=== PATIENT | male | born 1980 | race Caucasian/White ===

== ENCOUNTER 2020-02-20 01:28 | Emergency (ER) | payer OTHER ==
[~2020-02-20] VITALS: Ht 175.3 cm; Wt 77.3 kg
[2020-02-20] MEDS ORDERED: MORPHINE SULFATE 10 MG/ML VIAL. IV ONE (02:00)
[2020-02-20] MEDS ORDERED: PROPOFOL 10 MG/ML (20ML) VIAL. IV ONE (03:00)
--- NOTE | 2020-02-20 03:08 | RAD ---
INDICATION: Reason: fall / Spl. Instructions: / History: COMPARISON: None. IMPRESSION: Right wrist: 3 views obtained. Comminuted and displaced fracture is identified at the distal radius w ith extension through the epiphysis and metaphysis and likely extension to the articular surface. Roman deshaun displacement of the fracture fragments by approximately 15 mm. Additionally there is a subtle nayely ency at the ulnar styloid which could be from an additional fracture. Right forearm: 2 views obtained. Above-described comminuted distal radius fracture as well as suspect ed ulna fracture seen on this exam as well. Electronically signed by: Jonathan Cortez MD (02/20/2020 3:01 AM) [id number]
[2020-02-20 03:18] VITALS: BP 152/89
[2020-02-20] MEDS ORDERED: oxyCODONE/APAP 5/325 1 TAB TABLET PO ONE (04:00)
[2020-02-20] MEDS ORDERED: MORPHINE SULFATE 4 MG/ML VIAL. IV ONE (04:00)
[2020-02-20] MEDS ORDERED: OXYC1TAB15 PO (04:04)
--- NOTE | 2020-02-20 04:04 | ED.ADGEN ---
General Adult EDM: Chief Complaint: WRIST PAIN HPI: HPI: Patient is a 39-year-old male who presents to the emergency room complaining of severe right wrist pain. Patient slipped and fell on ice at home. He caught himself with his right arm. He denies any other injuries. He does state that he has a difficult time moving the fingers and has a difficult time feeling his thumb. Review of Systems: Review of Systems: Complete ROS is negative unless otherwise documented in HPI Current Medications: Current Medications Medications (Trade) Dose Ordered Sig/Melisa Start Time Stop Time Status Last Admin Dose Admin Morphine Sulfate (Morphine Sulfate) 4 mg 1X ONCE 02/20/20 04:00 02/20/20 04:11 DC 02/20/20 04:09 4 MG Oxycodone/ Acetaminophen (Percocet 5/325) 1 tab 1X ONCE 02/20/20 04:00 02/20/20 04:11 DC 02/20/20 04:08 1 TAB Propofol (Diprivan) 200 mg 1X ONCE 02/20/20 03:00 02/20/20 03:03 DC 02/20/20 02:18 200 MG Allergies: Allergies: Allergies Coded Allergies Type Severity Reaction Last Updated Verified ibuprofen Allergy Severe anaphylaxis 02/20/20 Yes Sulfa (Sulfonamide Antibiotics) Allergy Intermediate 02/20/20 Yes meperidine Allergy Intermediate hallucinations 02/20/20 Yes Physical Exam: PE: General: Awake, alert, NAD. Well Nourished, well hydrated. Cooperative HEENT: Atraumatic, EOMI, PERRL, airway patent, moist oral mucosa Neck: Supple, trachea midline Respiratory: CTA bilaterally, normal effort, no wheezing/crackles CV: RRR, no murmur, cap refill <2 GI: Soft, nondistended, nontender, no masses MSK: R wrist: deformity, 2+ radial pulse, mild decrease sensation in thumb, unable to move fingers 3-5 Skin: Warm, dry, intact Neuro: A&O x3, speech NL, sensory and motor grossly intact, no focal deficits Psych: Normal affect, normal mood, not suicidal or homicidal Current Patient Data: Vital Signs: Vital Signs Date Time Temp Pulse Resp B/P (MAP) Pulse Ox O2 Delivery O2 Flow Rate FiO2 02/20/20 04:09 98 02/20/20 03:18 62 20 152/89 64 12 78 17 02/20/20 01:40 99.0 Room Air 99.0 EKG: EKG: [] Heart Score: Risk Factors: Risk Factors: DM, Current or recent (<one month) smoker, HTN, HLP, family history of CAD, obesity. Risk Scores: Score 0 - 3: 2.5% MACE over next 6 weeks - Discharge Home Score 4 - 6: 20.3% MACE over next 6 weeks - Admit for Clinical Observation Score 7 - 10: 72.7% MACE over next 6 weeks - Early Invasive Strategies Radiology/Procedures: Radiology/Procedures: [] Course & Med Decision Making: Course & Med Decision Making Pertinent Labs and Imaging studies reviewed. (See chart for details) Patient is a 39-year-old male who presents to the emergency room with obvious deformity to the right wrist. X-ray shows radial fracture with angulation. Due to patient's decreased sensation and inability to move fingers he was sedated and wrist was reduced and splinted. After sedation patient had full sensation in his fingers and was able to fully extend his wrist and fingers. I discussed with him that if he loses any sensation or is unable to move his fingers he needs to return immediately to the emergency room. He will follow up with orthopedic surgery on Saturday. Patient's test results and vitals while in the ED were fully reviewed and discussed with the patient. Patient is stable and at this time does not need admission to the hospital. We have discussed strict return precautions and the importance of following up with their Primary Care Physician. Patient stated understanding and was given an opportunity to ask any questions. Patient is in agreement with plan. Peggy Disclaimer: Peggy Disclaimer: This electronic medical record was generated, in whole or in part, using a voice recognition dictation system. PROCEDURE Procedure Fracture Reduction Performed by: Alyssa Horn MD Consent: Verbal consent obtained. Risks, benefits, and alternatives were discussed Time out was called immediately prior to start of procedure Pre-procedure: Unable to move fingers 3 through 5, 2+ radial pulse Location: Right radius Technique: Direct pressure Results: Improvement in neurovascular status Complication: None Tolerated procedure well, capillary refill normal, full ROM Post procedure: Neurovascularly intact Departure Departure Impression: Primary Impression: Radial fracture Additional Impression: Fall Disposition: 01 DC HOME SELF CARE/HOMELESS Condition: STABLE Referrals: NO PCP (PCP) LEANNE WILDER MD Patient Instructions: Wrist Fracture Scripts Oxycodone/Apap 5-325 (PERCOCET 5-325 MG TABLET ) 1 Each Tablet 1 TAB PO PRN Q4HRS PRN for PAIN, #20 TAB 0 Refills Prov: ALYSSA HORN MD 02/20/20 Problem Qualifiers ALYSSA HORN MD Feb 20, 2020 04:04
--- NOTE | 2020-02-20 06:04 | RAD ---
INDICATION: Reason: post reduction / Spl. Instructions: / History: COMPARISON: Earlier same day IMPRESSION: Right wrist: 2 views obtained. Fine osseous detail is limited secondary to overlying splint. Repeat d emonstration of distal radius and distal ulna fracture. There is some persistent posterior displaceme nt at the radial fracture site. Electronically signed by: Jonathan Cortez MD (02/20/2020 5:59 AM) [id number]
== END 2020-02-20 04:15 | disposition home or self-care (01) ==
LOC: ER 01:28
DX: S52.501A Unspecified fracture of the lower end of right radius, initial encounter for closed fracture (principal); Z88.1 Allergy status to other antibiotic agents; Z88.2 Allergy status to sulfonamides; Z88.8 Allergy status to other drugs, medicaments and biological substances; W00.0XXA Fall on same level due to ice and snow, initial encounter; Y93.89 Activity, other specified; Y92.098 Other place in other non-institutional residence as the place of occurrence of the external cause; Y99.8 Other external cause status
CPT/HCPCS: 25605; 73090; 73100; 73110; 96374; 99285; J2270; J2704

== ENCOUNTER 2020-02-23 13:43 | Day surgery (SDC) | payer OTHER ==
[~2020-02-23] VITALS: Ht 172.7 cm; Wt 81.2 kg
[~2020-02-23 13:43] MED LIST: IV RINGERS,LACTATED 1000ML 1,000 ML IV SCH; OXYC1TAB15 PO
[2020-02-23] MEDS ORDERED: DEXAMETHASONE SOD PHOS 4 MG/ML VIAL ONE (14:19)
[2020-02-23] MEDS ORDERED: ONDANSETRON PF 4 MG/2 ML VIAL. ONE (14:19)
[2020-02-23] MEDS ORDERED: LIDOCAINE 2% PF 5 ML VIAL. ONE (14:19)
[2020-02-23] MEDS ORDERED: PROPOFOL 10 MG/ML (20ML) VIAL. IV ONE ×2 (14:19→16:54)
[2020-02-23] MEDS ORDERED: fentaNYL PF VIAL 100 MCG/2 ML VIAL IV PRN ×2 (14:30)
[2020-02-23] MEDS ORDERED: ONDANSETRON PF 4 MG/2 ML VIAL. IV PRN (14:30)
[2020-02-23] MEDS ORDERED: IV RINGERS,LACTATED 1000ML 1,000 ML IV SCH (14:30)
[2020-02-23] MEDS ORDERED: PROCHLORPERAZINE 10 MG/2 ML VIAL. IV PRN (14:30)
[2020-02-23] MEDS ORDERED: SCOPOLAMINE 1.5MG PATCH. TD ONE (15:00)
[2020-02-23] MEDS ORDERED: fentaNYL PF VIAL 100 MCG/2 ML VIAL ONE ×3 (15:24→18:10)
[2020-02-23] MEDS ORDERED: MIDAZOLAM HCL/PF 2 MG/2 ML VIAL. ONE (16:30)
[2020-02-23] MEDS ORDERED: BUPIVACAINE MPF 0.5% 30 ML VIAL. ONE (16:46)
--- NOTE | 2020-02-23 17:49 | DISCH ---
DISCHARGE INSTRUCTIONS Condition on Discharge Condition on Discharge: Stable Activity After Discharge Activity Instructions for Disc: Other, see below (Fine motor use permitted of right hand such as grasping eating utensils, writing, typing) Lifting Instructions after Dis: No heavy lifting, No pulling or pushing, Do not lift >10 pounds Weight Bearing Status after Di: Non weight bearing Diet after Discharge Diet after Discharge: Regular Wound Incision Care Wound/Incision Care: Do not change dressing (Keep dressing dry cover and shower call if dressing is saturated or becomes wet) Contacting the after DC Call your doctor for: Concerns you may have Follow-Up Follow up with: Dr. Garnica 1 week LEANNE GARNICA MD Feb 23, 2020 17:49
[2020-02-23] MEDS ORDERED: MORPHINE SULFATE 2 MG/ML VIAL. ONE (18:33)
[2020-02-23] MEDS: MORPHINE SULFATE 2 MG/ML VIAL. IV PRN ×2 (18:39→18:52)
[2020-02-23] MEDS ORDERED: oxyCODONE/APAP 5/325 1 TAB TABLET PO ONE (19:00)
--- NOTE | 2020-02-23 19:19 | PDOC4 ---
Operative Note Operative Note Date of surgery: 02/23/2020 Preoperative diagnosis: Displaced intra-articular right distal radius fracture Postoperative diagnosis: Same with 2 part intra-articular right distal radius fracture Operative procedure: Operative reduction internal fixation 2 part intra- articular right distal radius fracture with volar locking plate and screw fixation Surgeon: Nahun Research Administrator: Floyd richmond Anesthesia: General Estimated blood loss: 20 cc Complications: None Operative indications: Patient was evaluated in the office yesterday after attempted closed reduction of a right distal radius fracture in the emergency department. 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 He has significant pain even in the splint despite trying not to use the arm at all and I had gone over with him the x-ray findings the unacceptable current alignment and the concern for involvement of the joint and the recommended operative reduction internal fixation the possibility of infection nerve or blood vessel damage medical or other anesthetic complications and even under the best circumstances the chance of stiffness and some weakness. All his questions were answered he agrees to proceed with operative evaluation and treatment Operative text: Patient was identified procedure verified patient placed in the supine position on the operating table. After adequate routes of general anesthesia were administered the right upper extremity was prepped and draped in standard sterile fashion with an upper arm tourniquet. After timeout was performed patient procedure identified and verified the right upper extremity was exsanguinated by Esmarch bandage tourniquet inflated to 300 mmHg a standard volar Jason approach was carried out to the distal radius subperiosteal dissection was carried out and near anatomic reduction carried out under multiple fluoroscopic views. A standard short Annemarie DVR cross lock volar distal radius plate was placed and provisionally fixated with a nonlocking screw in the sliding hole and small placement changes were made before distal locking screws were individually placed under fluoroscopic guidance with a multi directional locking screw to gain best directional fixation in the radial styloid. Proximal row locking screws were then placed and additional shaft screw fixation carried out under multiple fluoroscopic guidance confirming the near anatomic reduction under all views and the adequacy of hardware placement. Thorough irrigation carried out normal saline solution. Subcutaneous closure with buried Vicryl suture subcuticular closure with Monocryl suture Steri-Strips Mastisol sterile dressings were applied followed by a well-padded volar splint. Fingers were noted to be warm pink following deflation of tourniquet patient returned to recovery room stable condition having tolerated the procedure well. Floyd richmond was present and assisted in patient positioning prepping draping retraction closure and dressings LEANNE WILDER MD Feb 23, 2020 19:19
[2020-02-23] MEDS ORDERED: HYDROmorphone 2 MG/ML VIAL ONE (19:25)
[2020-02-23] MEDS: HYDROmorphone 2 MG/ML VIAL IV PRN ×2 (19:29→19:40)
[2020-02-23] MEDS ORDERED: hydrALAZINE 20 MG/ML VIAL. ONE (19:33)
[2020-02-23] MEDS ORDERED: hydrALAZINE 20 MG/ML VIAL. IVP PRN (19:45)
[2020-02-23 19:49] VITALS: BP 191/69
== END 2020-02-23 20:00 | disposition home or self-care (01) ==
LOC: SURG 13:43
PROVIDERS: ATTEND Orthopaedic Surgery
DX: S52.571A Other intraarticular fracture of lower end of right radius, initial encounter for closed fracture (principal); Z87.891 Personal history of nicotine dependence; Z79.899 Other long term (current) drug therapy; Z98.890 Other specified postprocedural states; Z88.2 Allergy status to sulfonamides; Z88.8 Allergy status to other drugs, medicaments and biological substances; Z20.828 Contact with and (suspected) exposure to other viral communicable diseases; X58.XXXA Exposure to other specified factors, initial encounter; Y93.89 Activity, other specified; Y92.89 Other specified places as the place of occurrence of the external cause; Y99.8 Other external cause status
CPT/HCPCS: 25608; 87426; C1713; C9803; J0360; J0690; J1100; J1170; J2250; J2270; J2405; J2704; J3010; J3490; U0003; 76000

== ENCOUNTER → 2020-02-24 | Outpatient (CLI) | payer OTHER ==
[2020-02-23 19:49] VITALS: BP 191/69
[~2020-02-24] MED LIST changes: -IV RINGERS,LACTATED 1000ML 1,000 ML IV SCH
--- NOTE | 2020-02-25 02:54 | RAD ---
VENOUS DUPLEX RIGHT UPPER EXTREMITY Left upper extremity venous duplex was performed using B-mode, color-flow, and spectral Doppler. Indication: Right arm swelling, right wrist surgery Findings: The right internal jugular, subclavian, axillary, brachial, basilic, and cephalic veins wer e assessed for patency. All the vessels were found to be compressible and demonstrated phasic, compet ent to flow with normal augmentation. Impression: No evidence for right upper extremity DVT Electronically signed by: Tj Henderson MD (02/25/2020 2:52 AM) SELMA
== END ==
LOC: US 15:41
PROVIDERS: ATTEND Physician Assistant
DX: S52.501A Unspecified fracture of the lower end of right radius, initial encounter for closed fracture (principal); M79.601 Pain in right arm; Z98.890 Other specified postprocedural states; X58.XXXA Exposure to other specified factors, initial encounter; Y92.89 Other specified places as the place of occurrence of the external cause; Y93.89 Activity, other specified; Y99.8 Other external cause status
CPT/HCPCS: 93971